=== PATIENT | female | born 1970 ===

== ENCOUNTER 2020-11-16 | Outpatient (CLI) | payer OTHER | END 2020-11-16 15:29 | disposition home or self-care (01) | LOC: PPH VACUNA | DX: Z23 Encounter for immunization (principal) ==

== ENCOUNTER 2021-08-24 13:40 | Outpatient (CLI) | payer OTHER | END 2021-08-24 13:45 | disposition home or self-care (01) | LOC: PPH VACUNA 13:40 | PROVIDERS: ATTEND Emergency Medicine Pediatric Emergency Medicine | DX: Z23 Encounter for immunization (principal) ==